=== PATIENT | female | born 1980 | race Two or more races ===

== ENCOUNTER 2022-06-09 17:06 | Emergency (ER) | payer OTHER ==
[~2022-06-09] VITALS: Ht 172.7 cm; Wt 72.6 kg
--- NOTE | 2022-06-09 17:41 | NUR ---
Urine collected and sent to LAB.
[2022-06-09 17:53] LABS: *BILIRUBIN,URIN NEGATIVE (NEGATIVE); *BLOOD, URINE NEGATIVE (NEGATIVE); *CLARITY,URINE CLEAR (CLEAR); *COLOR,URINE YELLOW (YELLOW); *KETONES,URINE 1+ (NEGATIVE); *UROBILINOGEN,URINE 0.2 E.U./dl (NORMAL); LEUKOCYTE ESTERASE ,URINE NEGATIVE (NEGATIVE); NITRITE, URINE NEGATIVE (NEGATIVE); UGLUCOSE NEGATIVE (NEGATIVE)
[2022-06-09] MEDS ORDERED: METR500T PO (18:16)
[2022-06-09 18:18] LABS: *URINE HCG, QUAL NEG (NEGATIVE)
--- NOTE | 2022-06-09 18:37 | NUR ---
Female customer advisor specialist accompanied female patient for (Dr Araujo).
[2022-06-09] MEDS ORDERED: FLUCONAZOLE 100 MG TABLET ONE (18:41)
[2022-06-09] MEDS ORDERED: FLUCONAZOLE 100 MG TABLET PO ONE (18:45)
[2022-06-09 18:59] VITALS: BP 120/89
--- NOTE | 2022-06-09 18:59 | NUR ---
Patient discharged to home in stable condition. Written and verbal after care instructions given. Patient verbalizes understanding of instructions. Stressed follow up or return to ER for worsening s/s.
[2022-06-12 08:06] LABS: *GC NAA Negative (Negative)
[2022-06-12 10:06] LABS: *TRIC.VAG. NAA Negative (Negative)
== END 2022-06-09 19:00 | disposition home or self-care (01) ==
LOC: ER 17:06
DX: N76.0 Acute vaginitis (principal); B96.89 Other specified bacterial agents as the cause of diseases classified elsewhere; Z11.3 Encounter for screening for infections with a predominantly sexual mode of transmission; B37.31 Acute candidiasis of vulva and vagina; Z88.0 Allergy status to penicillin
CPT/HCPCS: 84703; 87210; 87491; A4663

== ENCOUNTER 2022-12-24 11:36 | Emergency (ER) | payer MEDICAID, OTHER ==
[~2022-12-24] VITALS: Ht 170.2 cm; Wt 72.1 kg
[~2022-12-24 11:36] MED LIST: METR500T PO
[2022-12-24] MEDS ORDERED: SEMA7TAB PO (11:52)
[2022-12-24] MEDS ORDERED: IV NORMAL SALINE 1000 ML BAG IV ONE (12:00)
[2022-12-24] MEDS ORDERED: ONDANSETRON 4 MG/2 ML VIAL IV ONE (12:00)
[2022-12-24] MEDS ORDERED: ONDANSETRON 4 MG/2 ML VIAL ONE (12:08)
[2022-12-24 12:26] LABS: MEAN CORPUSCULAR HEMOGLOBIN 30.8 uug (24.7-32.8); PLATELET COUNT (AUTO) 283 K/uL (179-408)
[2022-12-24 13:06] LABS: CREATININE 0.7 mg/dL (0.6-1.3); POTASSIUM 4.3 mmol/L (3.5-5.1)
[2022-12-24 13:10] LABS: BILIRUBIN,DIRECT 0.2 mg/dL (0.0-0.2); TOTAL PROTEIN, SERUM 7.7 g/dL (6.4-8.2)
[2022-12-24] MEDS ORDERED: ONDA4TAB5 PO (13:24)
[2022-12-24 17:22] VITALS: BP 122/80
== END 2022-12-24 14:00 | disposition home or self-care (01) ==
LOC: ER 11:38
DX: R11.2 Nausea with vomiting, unspecified (principal); R19.7 Diarrhea, unspecified; Z88.0 Allergy status to penicillin; Z79.899 Other long term (current) drug therapy
CPT/HCPCS: 99283; 96374; 96361; 80076; 80048; 83690; 85025; 36415; J2405; J7040; A4663

== ENCOUNTER 2024-08-19 11:51 | Emergency (ER) | payer MEDICAID ==
[~2024-08-19] VITALS: Ht 172.7 cm; Wt 72.6 kg
[~2024-08-19 11:51] MED LIST changes: -METR500T PO; +ONDA4TAB5 PO; +SEMA7TAB PO
[2024-08-19] MEDS ORDERED: FAMC500T3 PO (12:38)
[2024-08-19] MEDS ORDERED: HYDR-3980 PO (12:38)
[2024-08-19 12:45] VITALS: BP 119/77; TEMP 98.2; O2SAT 100
== END 2024-08-19 12:46 | disposition home or self-care (01) ==
LOC: ER 11:51
DX: B02.9 Zoster without complications (principal); Z88.0 Allergy status to penicillin
CPT/HCPCS: A4606; A4663

== ENCOUNTER 2024-11-19 22:26 | Emergency (ER) | payer MEDICAID ==
[~2024-11-19] VITALS: Ht 172.7 cm; Wt 70.3 kg
[~2024-11-19 22:26] MED LIST changes: +FAMC500T3 PO; +HYDR-3980 PO
[2024-11-19] MEDS ORDERED: methylPREDNISolone SOD SUCC 125 MG/2 ML VIAL ONE (23:46)
[2024-11-19] MEDS ORDERED: diphenhydrAMINE 50 MG/1 ML VIAL ONE (23:46)
[2024-11-19] MEDS ORDERED: FAMOTIDINE. 20 MG/2 ML VIAL IV ONE (23:47)
[2024-11-19 23:52] LABS: BASOPHILS % (AUTO) 0.5 % (0.0-2.0); EOSINOPHILS # (AUTO) 0.1 K/uL (0.0-0.7); EOSINOPHILS % (AUTO) 1.6 % (0.0-7.0); HEMATOCRIT 36.1 % (31.2-41.9); HEMOGLOBIN 12.2 g/dL (10.9-14.3); MEAN CORPUSCULAR HGB CONC 34 g/dL (32.3-35.6); MEAN CORPUSCULAR VOLUME 88.6 fL (75.5-95.3); MONOCYTES # (AUTO) 0.5 K/uL (0.1-1.30); MONOCYTES % (AUTO) 7.4 % (0.0-11.0); NEUTROPHILS # (AUTO) 3.9 K/uL (1.8-8.9); NEUTROPHILS % (AUTO) 59.5 % (38.5-71.5); PLATELET COUNT (AUTO) 288 K/uL (179-408); RED BLOOD CELL COUNT(AUTO) 4.07 MIL/uL (3.63-4.92); RED CELL DISTRIBUTION WIDTH 13.3 % (12.3-17.7); WHITE BLOOD COUNT (AUTO) 6.6 K/uL (3.8-11.8)
[2024-11-19 23:53] LABS: DIFFERENTIAL COMMENT 1
[2024-11-19 23:55] LABS: *BILIRUBIN,URIN NEGATIVE (NEGATIVE); *CLARITY,URINE CLEAR (CLEAR); *COLOR,URINE YELLOW (YELLOW); *KETONES,URINE NEGATIVE (NEGATIVE); *PROTEIN,URINE NEGATIVE (NEGATIVE); *UROBILINOGEN,URINE 0.2 E.U./dl (NORMAL); LEUKOCYTE ESTERASE ,URINE NEGATIVE (NEGATIVE); NITRITE, URINE NEGATIVE (NEGATIVE); PH,URINE 6.5 (5.0-8.0); UGLUCOSE NEGATIVE (NEGATIVE)
[2024-11-19 23:56] LABS: *BLOOD, URINE TRACE (NEGATIVE); *URINE HCG, QUAL NEGATIVE (NEGATIVE)
[2024-11-19 23:57] LABS: CALCIUM 8.3 mg/dL (8.5-10.1); CREATININE 0.8 mg/dL (0.6-1.3); POTASSIUM 3.9 mmol/L (3.5-5.1)
[2024-11-19] MEDS ORDERED: PRED50TA PO (23:58)
[2024-11-19] MEDS ORDERED: DIPH25TA62 PO (23:58)
[2024-11-20 00:03] LABS: ALBUMIN 3.5 g/dL (3.4-5.0); BILIRUBIN,TOTAL 0.3 mg/dL (0.2-1.0); TOTAL PROTEIN, SERUM 7.2 g/dL (6.4-8.2)
[2024-11-20] MEDS: diphenhydrAMINE 50 MG/1 ML VIAL IV ONE (00:06)
[2024-11-20] MEDS: FAMOTIDINE. 20 MG/2 ML VIAL IV ONE (00:06)
[2024-11-20 00:07] LABS: BACTERIA,URINE NONE SEEN /HPF (NONE SEEN); RBC,URINE 0-3 /HPF (0-3); SQUAMOUS EPITHELIAL CELL,UR FEW /HPF (NONE SEEN); WBC,URINE NONE SEEN /HPF (0-3)
[2024-11-20] MEDS: methylPREDNISolone SOD SUCC 125 MG/2 ML VIAL IV ONE (00:07)
[2024-11-20] MEDS: IV NS 1000 ML 1,000 ML IV ONE (00:07)
[2024-11-20 00:57] VITALS: BP 129/79; O2SAT 98
== END 2024-11-20 00:53 | disposition home or self-care (01) ==
LOC: ER 22:29
DX: T78.1XXA Other adverse food reactions, not elsewhere classified, initial encounter (principal); R20.0 Anesthesia of skin; Z79.52 Long term (current) use of systemic steroids; Z79.624 Long term (current) use of inhibitors of nucleotide synthesis; Z88.0 Allergy status to penicillin; Z60.2 Problems related to living alone; X58.XXXA Exposure to other specified factors, initial encounter
CPT/HCPCS: 99284; 80053; 81001; 84703; 85025; 36415; 96374; 96375; 96361; J2919; J1200; J1308; J7040; A4606; A4663